=== PATIENT | female | born 1965 | race Caucasian/White ===

== ENCOUNTER 2023-01-25 13:21 | Inpatient (IN) | payer SELFPAY ==
[~2023-01-25] VITALS: Ht 170.2 cm; Wt 53.9 kg
[2023-01-25 14:59] LABS: Alanine Aminotransferase 28 U/L (7-40); Albumin 2.6 g/dL (3.2-4.8); Alkaline Phosphatase 68 U/L (46-116); Anion Gap 9 (5-15); Aspartate Aminotransferase 54 U/L (13-40); BUN/Creatinine Ratio 14.9 (10.0-20.0); Bilirubin, Total 9.7 mg/dL (0.2-1.0); Blood Urea Nitrogen 11 mg/dL (9-23); Calcium 8.5 mg/dL (8.7-10.4); Carbon Dioxide 22 mmol/L (20-30); Chloride 100 mmol/L (98-107); Glucose 97 mg/dL (74-106); Lipase 57 U/L (12-53); Potassium 3.5 mmol/L (3.5-5.1); Sodium 131 mmol/L (136-145); Total Protein 7.1 g/dL (5.7-8.2)
[2023-01-25 15:09] VITALS: PULSE 109; RESP 18; O2SAT 98
[2023-01-25] MEDS ORDERED: levoFLOXacin 500MG 100 ML IV ONE (15:15)
[2023-01-25 15:17] LABS: Lactic Acid w/Reflex 3.3 mmol/L (0.4-2.0)
[2023-01-25 15:20] LABS: Basophils # (auto) 0.2 10 ^3/uL (0-0.2); Basophils % (auto) 1.5 % (0.0-2.0); Eosinophils # (auto) 0 10 ^3/uL (0-0.8); Eosinophils % (auto) 0.1 % (0.0-7.0); Hematocrit 30.8 % (36.0-46.0); Hemoglobin 10.6 g/dL (12.2-16.2); Lymphocytes # (auto) 0.9 10 ^3/uL (0.4-5.4); Lymphocytes % (auto) 9.2 % (10.0-50.0); Mean Corpuscular Hemoglobin 36.1 pg (28.0-32.0); Mean Corpuscular Hgb Conc. 34.5 g/dL (32.0-36.0); Mean Corpuscular Volume 104.7 fL (80.0-100.0); Monocytes # (auto) 0.4 10 ^3/uL (0-1.3); Monocytes % (auto) 3.6 % (0.0-12.0); Neutrophils # (auto) 8.5 10 ^3/uL (1.6-8.6); Neutrophils % (auto) 85.6 % (37.0-80.0); Nucleated Red Blood Cells % 0.2 %; Red Blood Cells 2.94 10^6/uL (4.0-5.20); Red Cell Distribution Width 18.4 % (11.8-14.3); White Blood Cell 9.9 10^3/uL (4.4-10.8)
[2023-01-25 15:47] LABS: Platelet Estimate Decreased
[2023-01-25 17:52] LABS: Rapid Influenza A Negative (Negative); Rapid Influenza B Negative (Negative)
[2023-01-25 17:54] LABS: COVID19 ANTIGEN SOFIA FIA NEGATIVE (NEGATIVE)
[2023-01-25] MEDS ORDERED: PANTOPRAZOLE 40 MG/10 ML VIAL INJ IV ONE (18:30)
[2023-01-25] MEDS ORDERED: SODIUM CHLORIDE 0.9% 1,000 ML IV ONE (18:30)
[2023-01-25] MEDS ORDERED: TRAM50TA2 PO (18:57)
[2023-01-25] MEDS ORDERED: ATOR10TA52 PO (18:57)
[2023-01-25] MEDS ORDERED: SPIR100T4 PO (18:57)
[2023-01-25] MEDS ORDERED: LACT10SO3 PO (18:57)
[2023-01-25] MEDS ORDERED: FURO40TA4 PO (18:57)
[2023-01-25 19:20] LABS: INR 1.55 (0.9-1.15); Prothrombin Time 15.8 sec (9.3-11.8)
[2023-01-25 19:55] VITALS: PULSE 100; RESP 18; O2SAT 98
[2023-01-25] MEDS: traMADol HCL 50 MG TAB PO PRN (21:56)
[2023-01-25 22:00] VITALS: BP 95/47; PULSE 106; RESP 17; TEMP 99; O2SAT 99
[2023-01-25] MEDS: LACTULOSE 20Gm/30ML SOLN PO SCH (22:00)
[2023-01-25 22:07] VITALS: PULSE 106; RESP 17; O2SAT 99
[2023-01-25 22:46] LABS: Urine Clarity Turbid (Clear); Urine Color Orange (Yellow); Urine Protein, UAD 1+ (Negative); Urine Specific Gravity 1.023 (1.001-1.035); Urine Urobilinogen 1 mg/dL (Negative)
[2023-01-25 22:47] LABS: Urine Blood Negative /uL (Negative)
[2023-01-25 22:51] LABS: Urine Bacteria MODERATE /hpf (None Seen); Urine WBC 8 /hpf (0 - 5)
[2023-01-26 00:57] LABS: Lactic Acid w/Reflex 3.1 mmol/L (0.4-2.0)
[2023-01-26] MEDS ORDERED: SODIUM CHLORIDE 0.9% 500 ML IV ONE (04:15)
[2023-01-26] MEDS: traMADol HCL 50 MG TAB PO PRN ×3 (04:16→18:30)
[2023-01-26 05:00] VITALS: BP 95/46; PULSE 99; RESP 18; TEMP 98.3; O2SAT 98
[2023-01-26 07:27] LABS: Alanine Aminotransferase 29 U/L (7-40); Alkaline Phosphatase 48 U/L (46-116); Anion Gap 10 (5-15); Aspartate Aminotransferase 48 U/L (13-40); Blood Urea Nitrogen 14 mg/dL (9-23); Carbon Dioxide 22 mmol/L (20-30); Chloride 98 mmol/L (98-107); Glucose 73 mg/dL (74-106); Potassium 3.1 mmol/L (3.5-5.1); Sodium 130 mmol/L (136-145)
[2023-01-26 07:28] LABS: Albumin 2.5 g/dL (3.2-4.8); Bilirubin, Total 10.9 mg/dL (0.2-1.0); Total Protein 6.7 g/dL (5.7-8.2)
[2023-01-26 07:57] LABS: Lactic Acid w/Reflex 3.6 mmol/L (0.4-2.0)
[2023-01-26 08:07] LABS: Basophils # (auto) 0.1 10 ^3/uL (0-0.2); Basophils % (auto) 1.3 % (0.0-2.0); Eosinophils # (auto) 0 10 ^3/uL (0-0.8); Eosinophils % (auto) 0.4 % (0.0-7.0); Hematocrit 29.8 % (36.0-46.0); Hemoglobin 9.8 g/dL (12.2-16.2); Lymphocytes # (auto) 2.4 10 ^3/uL (0.4-5.4); Mean Corpuscular Hemoglobin 36.2 pg (28.0-32.0); Mean Corpuscular Hgb Conc. 32.9 g/dL (32.0-36.0); Mean Corpuscular Volume 110.2 fL (80.0-100.0); Monocytes # (auto) 1.3 10 ^3/uL (0-1.3); Monocytes % (auto) 11.9 % (0.0-12.0); Neutrophils % (auto) 64.4 % (37.0-80.0); Nucleated Red Blood Cells % 0.2 %; Red Cell Distribution Width 19.4 % (11.8-14.3); White Blood Cell 10.9 10^3/uL (4.4-10.8)
[2023-01-26 09:00] VITALS: BP 93/42; PULSE 99; RESP 20; TEMP 97.8; O2SAT 95
[2023-01-26 09:08] LABS: BUN/Creatinine Ratio 16.5 (10.0-20.0)
[2023-01-26] MEDS: levoFLOXacin 500MG 100 ML IV SCH (09:28)
[2023-01-26] MEDS: PANTOPRAZOLE 40 MG/10 ML VIAL INJ IV SCH (09:28)
[2023-01-26 13:00] VITALS: BP 111/52; PULSE 107; RESP 20; TEMP 98.1; O2SAT 96
[2023-01-26 13:07] LABS: Lactic Acid w/Reflex 3.4 mmol/L (0.4-2.0)
[2023-01-26] MEDS ORDERED: SODIUM BICARBONATE 8.4 % INJ 50ML VIAL IV ONE (13:30)
[2023-01-26] MEDS ORDERED: LACTATED RINGER'S 1,000 ML IV ONE (13:30)
[2023-01-26] MEDS ORDERED: POTASSIUM CHL 20 Meq TABLET PO ONE (15:00)
[2023-01-26] MEDS: LACTULOSE 20Gm/30ML SOLN PO SCH ×2 (15:04→22:08)
[2023-01-26 17:00] VITALS: BP 107/50; PULSE 107; RESP 20; TEMP 99; O2SAT 97
[2023-01-26 20:30] LABS: Lactic Acid w/Reflex 2.2 mmol/L (0.4-2.0)
[2023-01-26 22:00] VITALS: BP 115/62; PULSE 101; RESP 17; TEMP 98.8; O2SAT 99
[2023-01-27] MEDS: traMADol HCL 50 MG TAB PO PRN ×4 (01:31→21:49)
[2023-01-27 05:00] VITALS: BP 138/64; PULSE 115; RESP 18; TEMP 99; O2SAT 98
[2023-01-27] MEDS: LACTULOSE 20Gm/30ML SOLN PO SCH ×3 (06:23→21:49)
[2023-01-27 08:00] VITALS: BP 101/48; PULSE 110; RESP 16; TEMP 98.6; O2SAT 94
[2023-01-27 09:00] VITALS: BP 101/48; PULSE 110; RESP 16; TEMP 98.6; O2SAT 94
[2023-01-27] MEDS: levoFLOXacin 500MG 100 ML IV SCH (09:09)
[2023-01-27] MEDS: PANTOPRAZOLE 40 MG/10 ML VIAL INJ IV SCH (09:09)
[2023-01-27] MEDS ORDERED: PHYTONADIONE (VIT K)10 MG/ML 1ML VIAL SUBCUT ONE (09:30)
[2023-01-27] MEDS: ONDANSETRON HCL 4 MG/2 ML VIAL IV PRN (10:55)
[2023-01-27] MEDS: Ensure Enlive Vanilla 8oz Bottle PO SCH ×2 (15:00→20:00)
[2023-01-27 17:00] VITALS: BP 124/53; PULSE 108; RESP 16; TEMP 98.3; O2SAT 95
[2023-01-27 22:00] VITALS: BP 110/68; PULSE 105; RESP 17; TEMP 97.8; O2SAT 95
[2023-01-28] VITALS (7 sets, daily range): BP systolic 94–126; BP diastolic 39–86; PULSE 103–110; RESP 16–20; TEMP 97.5–98.1; O2SAT 95–97
[2023-01-28] MEDS: LACTULOSE 20Gm/30ML SOLN PO SCH ×3 (06:07→22:00)
[2023-01-28] MEDS: traMADol HCL 50 MG TAB PO PRN ×3 (06:08→19:59)
[2023-01-28] MEDS: ONDANSETRON HCL 4 MG/2 ML VIAL IV PRN ×3 (06:08→13:42)
[2023-01-28 06:44] LABS: INR 1.44 (0.9-1.15); Partial Thromboplastin Time 34.1 SEC (24.5-34.5); Prothrombin Time 14.8 sec (9.3-11.8)
[2023-01-28] MEDS: PANTOPRAZOLE 40 MG/10 ML VIAL INJ IV SCH (08:56)
[2023-01-28] MEDS: levoFLOXacin 500MG 100 ML IV SCH (08:56)
[2023-01-28] MEDS: Ensure Enlive Vanilla 8oz Bottle PO SCH ×3 (08:57→20:40)
[2023-01-28] MEDS ORDERED: POTASSIUM CHL 20 Meq TABLET PO ONE (11:30)
[2023-01-28] MEDS: ALBUMIN 25% 100 ML IV SCH ×2 (18:06→20:40)
[2023-01-28 18:56] LABS: Body Fluid White Blood Cells 538 CUMM (0-200); Body Fluid pH 8
[2023-01-28 18:57] LABS: Body Fluid Polymorphonuclear 70 % (0-25); Body Fluid Red Blood Cells 4025 CUMM (0-2000)
[2023-01-28] MEDS ORDERED: ALBUMIN 25% 100 ML IV ONE (22:00)
[2023-01-29] VITALS (8 sets, daily range): BP systolic 92–112; BP diastolic 30–34; PULSE 101–109; RESP 18–20; TEMP 97.3–98.4; O2SAT 96–100
[2023-01-29] MEDS: ONDANSETRON HCL 4 MG/2 ML VIAL IV PRN ×2 (02:27→06:49)
[2023-01-29] MEDS: traMADol HCL 50 MG TAB PO PRN ×4 (02:28→21:46)
[2023-01-29] MEDS: LACTULOSE 20Gm/30ML SOLN PO SCH ×3 (06:00→21:46)
[2023-01-29] MEDS: PANTOPRAZOLE 40 MG/10 ML VIAL INJ IV SCH (09:02)
[2023-01-29] MEDS: levoFLOXacin 500MG 100 ML IV SCH (09:02)
[2023-01-29] MEDS: Ensure Enlive Vanilla 8oz Bottle PO SCH ×3 (09:24→20:00)
[2023-01-29] MEDS ORDERED: LEVO500T91 PO (10:26)
[2023-01-29] MEDS ORDERED: ZOFR4T PO (10:26)
[2023-01-29 13:06] LABS: Protein, Body Fluid 2.3 g/dL (.)
[2023-01-30 05:00] VITALS: BP 101/41; PULSE 98; RESP 18; TEMP 98.3; O2SAT 93
[2023-01-30] MEDS: LACTULOSE 20Gm/30ML SOLN PO SCH (06:00)
[2023-01-30 08:00] VITALS: BP 99/29; PULSE 101; RESP 20; TEMP 98.1; O2SAT 96
[2023-01-30 09:00] VITALS: BP 133/82; PULSE 70; RESP 18; TEMP 97.4; O2SAT 94
[2023-01-30] MEDS: PANTOPRAZOLE 40 MG/10 ML VIAL INJ IV SCH (10:00)
[2023-01-30] MEDS: levoFLOXacin 500MG 100 ML IV SCH (10:00)
[2023-01-30] MEDS: Ensure Enlive Vanilla 8oz Bottle PO SCH (10:00)
== END 2023-01-30 10:30 | disposition home or self-care (01) | DRG 871 ==
LOC: EDBD 13:21 → ER 13:21 → OVERFLOW 18:56 → CENTRAL 18:56
PROVIDERS: ADMIT Nurse Practitioner Family; ATTEND Family Medicine
PROC: 0W9G3ZZ Drainage of Peritoneal Cavity, Percutaneous Approach (ICD-10-PCS; principal; 2023-01-28)
DX: A41.9 Sepsis, unspecified organism (principal); G93.41 Metabolic encephalopathy; E87.1 Hypo-osmolality and hyponatremia; E87.21 Acute metabolic acidosis; I10 Essential (primary) hypertension; K70.31 Alcoholic cirrhosis of liver with ascites; Z20.822 Contact with and (suspected) exposure to COVID-19; F10.10 Alcohol abuse, uncomplicated; E78.00 Pure hypercholesterolemia, unspecified; Z71.41 Alcohol abuse counseling and surveillance of alcoholic; Z90.710 Acquired absence of both cervix and uterus; Z88.5 Allergy status to narcotic agent
CPT/HCPCS: 36415; 74176; 76705; 76942; 80053; 81001; 82140; 83605; 83690; 83986; 84132; 85025; 85610; 85730; 87040; 87081; 87205; 87426; 87804; 89051; 93005; 96365; 96367; 99291; C9113; G0378; J1956; J2405; J3430; P9047